=== PATIENT | female | born 1935 | race Caucasian/White ===

== ENCOUNTER 2023-11-26 13:33 | Inpatient (IN) | payer OTHER ==
[~2023-11-26] VITALS: Ht 172.7 cm; Wt 81.1 kg
[2023-11-26 15:23] LABS: Basophils # (auto) 0 10 ^3/uL (0-0.2); Basophils % (auto) 0.3 % (0.0-2.0); Eosinophils # (auto) 0 10 ^3/uL (0-0.8); Eosinophils % (auto) 0.5 % (0.0-7.0); Hematocrit 35.8 % (36.0-46.0); Hemoglobin 11.7 g/dL (12.2-16.2); Lymphocytes # (auto) 0.9 10 ^3/uL (0.4-5.4); Mean Corpuscular Hemoglobin 32.4 pg (28.0-32.0); Mean Corpuscular Hgb Conc. 32.8 g/dL (32.0-36.0); Mean Corpuscular Volume 98.8 fL (80.0-100.0); Monocytes # (auto) 0.5 10 ^3/uL (0-1.3); Monocytes % (auto) 5.7 % (0.0-12.0); Neutrophils # (auto) 7.8 10 ^3/uL (1.6-8.6); Neutrophils % (auto) 83.5 % (37.0-80.0); Red Blood Cells 3.62 10^6/uL (4.0-5.20); Red Cell Distribution Width 15.4 % (11.8-14.3); White Blood Cell 9.3 10^3/uL (4.4-10.8)
[2023-11-26 15:41] LABS: Alanine Aminotransferase 15 U/L (7-40); Albumin 3.9 g/dL (3.2-4.8); Alkaline Phosphatase 80 U/L (46-116); Anion Gap 4 (5-15); Aspartate Aminotransferase 18 U/L (13-40); BUN/Creatinine Ratio 15.6 (10.0-20.0); Bilirubin, Total 0.5 mg/dL (0.2-1.0); Blood Urea Nitrogen 15 mg/dL (9-23); Carbon Dioxide 29 mmol/L (20-30); Chloride 110 mmol/L (98-107); Glucose 92 mg/dL (74-106); Potassium 3.3 mmol/L (3.5-5.1); Sodium 143 mmol/L (136-145); Total Protein 6.3 g/dL (5.7-8.2)
[2023-11-26 17:31] VITALS: PULSE 85; RESP 20; O2SAT 96
[2023-11-26] MEDS ORDERED: ACETAMINOPHEN 325 MG TAB PO PRN (18:45)
[2023-11-26] MEDS ORDERED: MORPHINE SULFATE INJ 2 MG/ml SYRG IV PRN (18:45)
[2023-11-26] MEDS ORDERED: NITROGLYCERIN 0.4 MG SL TAB SL PRN (18:45)
[2023-11-26] MEDS: HYDROcodone-ACET 5/325MG TAB PO ONE (18:57)
[2023-11-26 19:30] VITALS: PULSE 70; RESP 16; O2SAT 94
[2023-11-26 21:44] LABS: Urine Bacteria None Seen /hpf (None Seen)
[2023-11-26 21:52] LABS: Urine Blood Negative /uL (Negative); Urine Clarity Clear (Clear); Urine Color Colorless (Yellow); Urine Protein, UAD Negative (Negative); Urine Specific Gravity 1.011 (1.001-1.035); Urine Urobilinogen Normal (Negative); Urine WBC 1 /hpf (0 - 5)
[2023-11-26] MEDS: SODIUM CHLOR 0.9% PF (SALINE LOCK) 10ML VIAL/SYR IV SCH (22:04)
[2023-11-26 22:58] VITALS: BP 152/71; PULSE 72; RESP 16; TEMP 98; O2SAT 96
[2023-11-26] MEDS: MORPHINE SULFATE INJ 2 MG/ml SYRG IV PRN (23:37)
[2023-11-27] VITALS (11 sets, daily range): BP systolic 110–180; BP diastolic 66–79; PULSE 73–89; RESP 16–20; TEMP 97.9–98.7; O2SAT 95–98
[2023-11-27] MEDS: HYDROcodone-ACET 5/325MG TAB PO PRN (01:28)
[2023-11-27] MEDS ORDERED: LOSA-535 PO (07:04)
[2023-11-27 07:07] LABS: Basophils # (auto) 0 10 ^3/uL (0-0.2); Basophils % (auto) 0.6 % (0.0-2.0); Eosinophils # (auto) 0.1 10 ^3/uL (0-0.8); Eosinophils % (auto) 1.2 % (0.0-7.0); Hematocrit 33.1 % (36.0-46.0); Hemoglobin 11.5 g/dL (12.2-16.2); Lymphocytes # (auto) 0.8 10 ^3/uL (0.4-5.4); Lymphocytes % (auto) 13.5 % (10.0-50.0); Mean Corpuscular Hemoglobin 33.9 pg (28.0-32.0); Mean Corpuscular Hgb Conc. 34.8 g/dL (32.0-36.0); Mean Corpuscular Volume 97.5 fL (80.0-100.0); Monocytes # (auto) 0.4 10 ^3/uL (0-1.3); Monocytes % (auto) 7.1 % (0.0-12.0); Neutrophils # (auto) 4.4 10 ^3/uL (1.6-8.6); Neutrophils % (auto) 77.6 % (37.0-80.0); Nucleated Red Blood Cells % 0.1 %; Red Blood Cells 3.39 10^6/uL (4.0-5.20); Red Cell Distribution Width 15.4 % (11.8-14.3); White Blood Cell 5.6 10^3/uL (4.4-10.8)
[2023-11-27] MEDS ORDERED: METH5TAB98 PO (07:08)
[2023-11-27] MEDS ORDERED: ACET-1881 PO (07:11)
[2023-11-27] MEDS ORDERED: ATOR40TA52 PO (07:11)
[2023-11-27] MEDS ORDERED: APIX5TAB PO (07:11)
[2023-11-27] MEDS ORDERED: GABA-1250 PO ×2 (07:11→18:10)
[2023-11-27] MEDS ORDERED: GABA-339 PO (07:11)
[2023-11-27] MEDS ORDERED: AML5T PO (07:11)
[2023-11-27 07:16] LABS: Alanine Aminotransferase 15 U/L (7-40); Alkaline Phosphatase 75 U/L (46-116); Anion Gap 6 (5-15); BUN/Creatinine Ratio 17.7 (10.0-20.0); Blood Urea Nitrogen 11 mg/dL (9-23); Calcium 8.8 mg/dL (8.5-10.1); Carbon Dioxide 28 mmol/L (20-30); Chloride 106 mmol/L (98-107); Glucose 100 mg/dL (74-106); Potassium 3.1 mmol/L (3.5-5.1); Sodium 140 mmol/L (136-145)
[2023-11-27 07:17] LABS: Albumin 3.9 g/dL (3.2-4.8); Aspartate Aminotransferase 20 U/L (13-40)
[2023-11-27 07:18] LABS: Bilirubin, Total 0.9 mg/dL (0.2-1.0); Total Protein 6.2 g/dL (5.7-8.2)
[2023-11-27] MEDS ORDERED: HYDROcodone-ACET 10/325MG TAB PO PRN (12:30)
[2023-11-27] MEDS: HYDROmorphone HCL 2 MG/ML VL/or syr IV PRN (12:52)
[2023-11-27] MEDS: DOCUSATE SOD 100 MG CAP PO PRN (12:57)
[2023-11-27] MEDS: POTASSIUM CHL 20 Meq TABLET PO ONE (15:14)
[2023-11-27] MEDS: HYDROcodone-ACET 10/325MG TAB PO PRN (16:55)
[2023-11-27] MEDS: hydrALAZINE HCL 20 MG/ML VL IV PRN (16:56)
[2023-11-27] MEDS: ONDANSETRON HCL 4 MG/2 ML VIAL IV PRN (17:45)
[2023-11-28] VITALS (8 sets, daily range): BP systolic 148–158; BP diastolic 63–76; PULSE 85–95; RESP 17–19; TEMP 98.1–99; O2SAT 91–96
[2023-11-28] MEDS: APIXABAN 5 MG TAB PO SCH (10:37)
[2023-11-28] MEDS: amLODIPine BESYLATE 5 MG TAB PO ONE (10:59)
[2023-11-28] MEDS: LOSARTAN POTASSIUM 50 MG TAB PO ONE (10:59)
[2023-11-28] MEDS: GABAPENTIN 300 MG CAP PO ONE (10:59)
[2023-11-28] MEDS: methIMAzole 5 MG TAB PO ONE (11:00)
[2023-11-28] MEDS: ATORVASTATIN 20 MG TAB PO SCH (21:21)
[2023-11-29] VITALS (8 sets, daily range): BP systolic 123–156; BP diastolic 60–72; PULSE 73–92; RESP 18–20; TEMP 97.4–98.6; O2SAT 92–100
[2023-11-29] MEDS: GABAPENTIN 300 MG CAP PO SCH (09:07)
[2023-11-29] MEDS: amLODIPine BESYLATE 5 MG TAB PO SCH (09:07)
[2023-11-29] MEDS: methIMAzole 5 MG TAB PO SCH (09:08)
[2023-11-29] MEDS: LOSARTAN POTASSIUM 50 MG TAB PO SCH (09:09)
[2023-11-29] MEDS: SODIUM CHLORIDE 0.9% 1,000 ML IV ONE (16:50)
[2023-11-30] VITALS (8 sets, daily range): BP systolic 127–159; BP diastolic 49–69; PULSE 68–82; RESP 16–18; TEMP 97.9–98.8; O2SAT 91–99
[2023-11-30] MEDS ORDERED: NAPR-746 PO (11:28)
[2023-11-30] MEDS ORDERED: GABAPENTIN 400 MG CAP PO ONE (22:00)
[2023-12-01] VITALS (8 sets, daily range): BP systolic 142–166; BP diastolic 65–77; PULSE 73–92; RESP 16–21; TEMP 97.3–98.8; O2SAT 94–100
[2023-12-01 07:19] LABS: Basophils # (auto) 0 10 ^3/uL (0-0.2); Basophils % (auto) 0.5 % (0.0-2.0); Eosinophils # (auto) 0.1 10 ^3/uL (0-0.8); Eosinophils % (auto) 2.5 % (0.0-7.0); Hemoglobin 10.3 g/dL (12.2-16.2); Lymphocytes # (auto) 0.6 10 ^3/uL (0.4-5.4); Lymphocytes % (auto) 12.5 % (10.0-50.0); Mean Corpuscular Hemoglobin 33.4 pg (28.0-32.0); Mean Corpuscular Hgb Conc. 34.2 g/dL (32.0-36.0); Mean Corpuscular Volume 97.8 fL (80.0-100.0); Monocytes # (auto) 0.6 10 ^3/uL (0-1.3); Monocytes % (auto) 11.9 % (0.0-12.0); Neutrophils # (auto) 3.7 10 ^3/uL (1.6-8.6); Neutrophils % (auto) 72.6 % (37.0-80.0); Red Blood Cells 3.07 10^6/uL (4.0-5.20); Red Cell Distribution Width 15.3 % (11.8-14.3)
[2023-12-01 07:20] LABS: Alanine Aminotransferase 19 U/L (7-40); Alkaline Phosphatase 54 U/L (46-116); Anion Gap 9 (5-15); BUN/Creatinine Ratio 28.1 (10.0-20.0); Blood Urea Nitrogen 16 mg/dL (9-23); Calcium 8.7 mg/dL (8.7-10.4); Carbon Dioxide 27 mmol/L (20-30); Chloride 106 mmol/L (98-107); Glucose 108 mg/dL (74-106); Potassium 3.7 mmol/L (3.5-5.1); Sodium 142 mmol/L (136-145)
[2023-12-01 07:21] LABS: Albumin 3.4 g/dL (3.2-4.8); Aspartate Aminotransferase 21 U/L (13-40)
[2023-12-01 07:22] LABS: Bilirubin, Total 0.8 mg/dL (0.2-1.0); Total Protein 5.7 g/dL (5.7-8.2)
[2023-12-01] MEDS ORDERED: GABAPENTIN 300 MG CAP PO SCH (20:00)
[2023-12-01] MEDS: GABAPENTIN 400 MG CAP PO SCH (20:40)
[2023-12-02 01:00] VITALS: BP 128/62; PULSE 79; RESP 16; TEMP 98.6; O2SAT 94
[2023-12-02 05:00] VITALS: BP 161/65; PULSE 83; RESP 16; TEMP 98.6; O2SAT 97
[2023-12-02 08:00] VITALS: PULSE 76; PULSE 85; RESP 18; O2SAT 95
[2023-12-02 09:20] VITALS: BP 146/62; PULSE 85; RESP 18; TEMP 98.8; O2SAT 95
[2023-12-02 13:25] VITALS: BP 132/66; PULSE 77; RESP 18; TEMP 98.9; O2SAT 95
[2023-12-02 14:09] VITALS: BP 132/66; PULSE 77; RESP 18; TEMP 98.8; O2SAT 95
== END 2023-12-02 15:15 | disposition home or self-care (01) | DRG 534 ==
LOC: EDBD 13:33 → ER 13:33 → TELE 18:39 → TELE-WESTW 23:27
PROVIDERS: ADMIT Internal Medicine; ATTEND Internal Medicine
DX: S72.402A Unspecified fracture of lower end of left femur, initial encounter for closed fracture (principal); M97.02XA Periprosthetic fracture around internal prosthetic left hip joint, initial encounter; I10 Essential (primary) hypertension; I48.91 Unspecified atrial fibrillation; E03.9 Hypothyroidism, unspecified; Z96.651 Presence of right artificial knee joint; Z96.643 Presence of artificial hip joint, bilateral; Z82.49 Family history of ischemic heart disease and other diseases of the circulatory system; Z79.899 Other long term (current) drug therapy; Z80.51 Family history of malignant neoplasm of kidney; W18.39XA Other fall on same level, initial encounter; Y93.89 Activity, other specified; Y92.89 Other specified places as the place of occurrence of the external cause; Y99.8 Other external cause status
CPT/HCPCS: 36415; 70450; 73562; 74176; 80053; 81001; 84484; 85025; 96374; 97110; 97116; 97163; 97530; G0378; J2405